=== PATIENT | female | born 1985 | race Caucasian/White ===

== ENCOUNTER 2020-12-01 14:24 | Outpatient (CLI) | payer BC, SELFPAY | END 2020-12-01 14:25 | disposition home or self-care (01) | LOC: ANHAUDIO 14:25 | PROVIDERS: PCP Family Medicine; Visit Provider Otolaryngology | DX: H61.23 Impacted cerumen, bilateral (principal); H90.6 Mixed conductive and sensorineural hearing loss, bilateral | CPT/HCPCS: 92557; 92567 ==

== ENCOUNTER 2023-02-11 08:48 | Emergency (ER) | payer BC, SELFPAY ==
[2023-02-11 08:55] VITALS: BP 117/79; PULSE 90; RESP 16; TEMP 37; O2SAT 100
--- NOTE | 2023-02-11 09:20 | ED.EAR ---
HPI - Ear Problem General Chief complaint: Ear Stated complaint: Ear Time Seen by Provider: 02/11/23 09:20 Source: patient, RN notes reviewed and old records reviewed Mode of arrival: ambulatory Limitations: no limitations History of Present Illness HPI Narrative: 38-year-old female presents to the [facility] with complaints of left ear pain for over a week. 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 Had been seen at another urgent care last week. They were flushing it and she was told to use [facility] Complaint: ear pain (left) and ear discharge (left) Related Data Home Medications Medication Instructions Recorded Confirmed levonorgestrel 21 mcg/24 hours (8 1 device intrauterine ONCE 01/31/23 02/11/23 yrs) 52 mg intrauterine device Inserted 12/25/22 (Mirena) Allergies Allergy/AdvReac Type Severity Reaction Status Date / Time No Known Allergies Allergy Verified 02/11/23 08:57 Review of Systems Review of Systems: All systems reviewed & are unremarkable except as noted in HPI and below Constitutional: Constitutional: Reports no additional constitutional complaints Eyes: Eyes: Reports no additional eye complaints ENT: Reports as per HPI and Reports otalgia (left) Cardiovascular: Cardiovascular: Reports no additional cardiovascular complaints, Denies chest pain and Denies dyspnea Respiratory: Respiratory: Reports no additional respiratory complaints, Denies chest congestion, Denies cough and Denies dyspnea Gastrointestinal: Gastrointestinal: Reports no additional gastrointestinal complaints, Denies abdominal pain, Denies nausea and Denies vomiting Musculoskeletal: Musculoskeletal: Reports no additional musculoskeletal complaints Integumentary/Breasts: Skin/Breast: Reports system reviewed and no additional complaints, except as docu Neurologic: Reports system reviewed and no additional complaints, except as documented Psychiatric: Psychiatric: Reports no additional psychiatric complaints Allergic/Immunologic: Allergic/Immunologic: Reports no additional allergic/immunologic complaints PMFSH Past Medical History Medical History (Updated 02/11/23 @ 09:39 by Rosavla Luke APRN) Allergic rhinitis Depression YOLANDA (generalized anxiety disorder) Hearing loss Melanoma Sensorineural hearing loss, bilateral Vaginal delivery Surgical History Surgical History History of removal of skin mole History of tonsillectomy and adenoidectomy Family History Family History Father Patient's father is in good health, Onset Age: 51 Mother Family history of elevated blood lipids Other Diabetes mellitus Social History Social History Smoking status: Never smoker Second hand tobacco smoke exposure: No Alcohol intake: never Substance use: never Living arrangements: with family Occupation/Education: occupation Gender identity (if verbalized by the patient): Female Sexual Orientation (if Verbalized by the Patient): Straight or Heterosexual Spiritual care concerns: No Comments At the time of my signature, I reviewed and agree with the nursing past medical, surgical, social, and family history. There is no relevant family history pertinent to the patient complaint. Exam Const: General: cooperative, healthy appearing, comfortable, no acute distress, well developed, alert and well nourished Nutritional Appearance: well nourished Orientation/consciousness: patient oriented x3 Limitations: no limitations HENMT: Head: normal to inspection Ears: hearing grossly normal bilaterally, external ears normal, TM normal on the right, mastoids normal, no periauricular adenopathy, Abnormal EAC present EAC tenderness on the left and otic discharge purulent on the left and TM abnormal bulging on the left, erythematous on the left and
== END 2023-02-11 09:40 | disposition home or self-care (01) ==
PROVIDERS: Emergency Provider Nurse Practitioner; PCP Family Medicine
DX: H66.92 Otitis media, unspecified, left ear (principal); H72.92 Unspecified perforation of tympanic membrane, left ear; F32.A Depression, unspecified; F41.1 Generalized anxiety disorder
CPT/HCPCS: 99213; G0463

== ENCOUNTER 2023-11-13 14:19 | Outpatient (CLI) | payer BC, SELFPAY ==
--- NOTE | ~2023-11-13 | MM_ITS ---
EXAMINATION: MM screening miguel BI w paige HISTORY: Screening mammogram TECHNIQUE: Craniocaudal and mediolateral oblique 3-D tomosynthesis images were obtained and synthetic 2-D images were generated. Bilateral rotated lateral CC views. CAD analysis was submitted and interp reted. COMPARISON: Baseline examination. No prior mammogram is available for comparison at this institution. BREAST PARENCHYMAL COMPOSITION: The breasts are heterogeneously dense, which may obscure small masses . FINDINGS: There is no evidence of suspicious mass, calcification, or architectural distortion to sugg est malignancy in either breast. There has been no suspicious interval change. IMPRESSION: 1. No mammographic evidence of malignancy. 2. Recommend routine screening mammography in one year. BI-RADS Category 1: Negative Reviewed, dictated and finalized at location A. URE REPAIRER FABRICATOR
== END 2023-11-13 14:20 | disposition home or self-care (01) ==
LOC: ANHIMG 14:23
PROVIDERS: PCP Family Medicine; Visit Provider Obstetrics & Gynecology
DX: Z12.31 Encounter for screening mammogram for malignant neoplasm of breast (principal)
CPT/HCPCS: 77063; 77067

== ENCOUNTER 2024-11-17 15:24 | Outpatient (CLI) | payer BC, SELFPAY ==
--- NOTE | ~2024-11-17 | MM_ITS ---
EXAMINATION: MM screening miguel BI w paige HISTORY: Screening TECHNIQUE: Craniocaudal and mediolateral oblique 3-D tomosynthesis images were obtained and synthetic 2-D images were generated. CAD analysis was submitted and interpreted. COMPARISON: 11/13/2023 BREAST PARENCHYMAL COMPOSITION: Dense: The breasts are extremely dense, which lowers the sensitivity of mammography. FINDINGS: There is no evidence of suspicious mass, calcification, or architectural distortion to sugg est malignancy in either breast. There has been no suspicious interval change. IMPRESSION: 1. No mammographic evidence of malignancy. 2. Recommend routine screening mammography in one year. BI-RADS Category 1: Negative Reviewed, dictated and finalized at location B. ATORY OPERATOR
== END 2024-11-17 15:25 | disposition home or self-care (01) ==
PROVIDERS: PCP Family Medicine; Visit Provider Obstetrics & Gynecology
DX: Z12.31 Encounter for screening mammogram for malignant neoplasm of breast (principal)
CPT/HCPCS: 77063; 77067

== ENCOUNTER 2025-03-09 15:30 | Outpatient (RCR) | payer BC, SELFPAY ==
--- NOTE | 2025-01-11 16:10 | OPREHPOC ---
Outpatient Therapy Plan of Care This is a Multidisciplinary Plan of Care that may contain components documented by all disciplines (PT, OT, and ST.) PT Problem 1 PT Problem #1 Knowledge Deficit PT Goal 1 Goal / Goal Update 1. Patient will perform independent HEP 2. Patient will verbalize urge suppression strategies Target Visit 2 PT Problem 2 PT Problem #2 Impaired Strength PT Goal 1 Goal / Goal Update 1. Improve pelvic floor strength to 3/5 to reduce incontinence 2. Improve pelvic floor endurance to 10 seconds to reduce incontinence Target Visit 4 PT Problem 3 PT Problem #3 Impaired Functional ADLs PT Goal 1 Goal / Goal Update 1. Patient will report no incontinence for at least 2 weeks 2. Patient will void no more than 8 times a day 3. Patient will be able to hold urge to void at least 30 minutes Target Visit 4
--- NOTE | 2025-01-11 16:10 | PTOPEVAL1 ---
Assessment and note entered by Iram Valentin DPT Evaluation Information Assessment Status Evaluation Diagnosis n81.4 ICD-10 Condition Codes (PT) Weakness R53.1,Stress incontinence N39.3 Subjective Information Pt reports stress incontinence that started about 5 years ago and is worsening. Incontinence occurs a few times a week, usually a few drops at a time. Wears liners at times. Has had to change clothes due to incontinence as well. Has tried using a deion-fit without much success. Voids about 10 times a day and 0 at night. Denies pain. Can hold urge to void a few minutes at a time. BM daily, denies pain or fecal incontinence. Denies history of pelvic pain. Pt has been 1 time, vaginal delivery with episiotomy. No other INTERNATIONAL SALES REPRESENTATIVE or b/b history. Patient goal: not leak urine Return to MD not scheduled. Reported Pain Level Pain Score 0: Self Report Assessment PT Clinical Summary The patient is presenting to skilled therapy with a several year history of stress incontinence and diagnosis of pelvic organ prolapse. She also reports increased urinary frequency and urgency. She presents with significantly impaired pelvic floor strength and inability to contract on exam. These impairments are contributing to her incontinence multiple times a week. She will benefit from skilled therapy to address her impairments in order to reduce incontinence and restore full function. Plan of Care Interventions Manual Therapy,Neuro Re-education,Patient/ Caregiver Education,Therapeutic Activities, Therapeutic Exercise PT Services Indicated Yes Treatment Frequency and 1 time a week for 4 visits Duration These treatments will address the objective and functional deficits as defined above. The patient will be advanced safely and appropriately in order for the patient to progress towards his/her prior level of function. Additional exercises will be introduced and as well as a comprehensive home exercise program upon discharge, if needed, ?to ensure carryover of functional gains achieved in the clinic. This treatment plan has been reviewed and agreement upon by the patient.
--- NOTE | 2025-02-09 16:08 | OPREHPOC ---
Outpatient Therapy Plan of Care This is a Multidisciplinary Plan of Care that may contain components documented by all disciplines (PT, OT, and ST.) PT Problem 1 PT Problem #1 Knowledge Deficit PT Goal 1 Goal / Goal Update 1. Patient will perform independent HEP 2. Patient will verbalize urge suppression strategies Target Visit 2 Progress Met PT Problem 2 PT Problem #2 Impaired Strength PT Goal 1 Goal / Goal Update 1. Improve pelvic floor strength to 3/5 to reduce incontinence 2. Improve pelvic floor endurance to 10 seconds to reduce incontinence update 02/09/15 1. 1/5 2. 1 second Target Visit 4 Progress Partially Met PT Problem 3 PT Problem #3 Impaired Functional ADLs PT Goal 1 Goal / Goal Update 1. Patient will report no incontinence for at least 2 weeks 2. Patient will void no more than 8 times a day 3. Patient will be able to hold urge to void at least 30 minutes update 02/09/25 1. 1 time per week 2. met 3. 20-30 minutes Target Visit 4 Progress Partially Met
--- NOTE | 2025-02-09 16:08 | PTOPPROG ---
Assessment and note entered by Iram Valentin DPT Evaluation Information Assessment Status Progress Diagnosis n81.4 ICD-10 Condition Codes (PT) Weakness R53.1,Stress incontinence N39.3 Subjective Information Pt reports she has been feeling better with therapy. One slight instance of incontinence in the last week and was not enough to change clothes . Has not yet tried anything really strenuous. Voiding 7-8 times a day and 0 at night. Can hold urge to void 20-30 minutes depending on the situation. Has not had to wear liners over the last week. Assessment PT Clinical Summary The patient has made good progress in therapy. She reports decreased frequency/volume of incontinence to only 1 time in the last week and did not have to change clothes or wear liners. She demonstrates improved pelvic floor strength and endurance, but still overall significant weakness. She will benefit from further therapy to improve strength and continue to reduce incontinence to allow for full function. Plan of Care Interventions Manual Therapy,Neuro Re-education,Patient/ Caregiver Education,Therapeutic Activities, Therapeutic Exercise PT Services Indicated Yes Treatment Frequency and 1 visit every other week x 2 visits Duration These treatments will address the objective and functional deficits as defined above. The patient will be advanced safely and appropriately in order for the patient to progress towards his/her prior level of function. Additional exercises will be introduced and as well as a comprehensive home exercise program upon discharge, if needed, ?to ensure carryover of functional gains achieved in the clinic. This treatment plan has been reviewed and agreement upon by the patient.
--- NOTE | 2025-03-09 16:06 | OPREHPOC ---
Outpatient Therapy Plan of Care This is a Multidisciplinary Plan of Care that may contain components documented by all disciplines (PT, OT, and ST.) PT Problem 1 PT Problem #1 Knowledge Deficit PT Goal 1 Goal / Goal Update 1. Patient will perform independent HEP 2. Patient will verbalize urge suppression strategies Target Visit 2 Progress Met PT Problem 2 PT Problem #2 Impaired Strength PT Goal 1 Goal / Goal Update 1. Improve pelvic floor strength to 3/5 to reduce incontinence 2. Improve pelvic floor endurance to 10 seconds to reduce incontinence update 02/09/15 1. 1/5 2. 1 second update 03/09/25 1. no change 2. no change Target Visit 6 Progress Partially Met PT Problem 3 PT Problem #3 Impaired Functional ADLs PT Goal 1 Goal / Goal Update 1. Patient will report no incontinence for at least 2 weeks 2. Patient will void no more than 8 times a day 3. Patient will be able to hold urge to void at least 30 minutes update 02/09/25 1. 1 time per week 2. met 3. 20-30 minutes update 03/09/25 1. met 2. met 3. 20-30 minutes Target Visit 4 Progress Partially Met
--- NOTE | 2025-03-09 16:07 | PTOPDC ---
Assessment and note entered by Iram Valentin DPT Evaluation Information Assessment Status Discharge Diagnosis n81.4 ICD-10 Condition Codes (PT) Weakness R53.1,Stress incontinence N39.3 Subjective Information Pt reports she is trying to keep up with her HEP and is overall feeling good. One episode of incontinence a few days ago during a hard sneeze, other than that did not have one recently. Trying to work on urge suppression techniques and is holding a little bit longer. No recent use of pantiliners. Reported Pain Level Pain Score 0: Self Report Assessment PT Clinical Summary The patient has continued to make good progress in therapy and reports only 1 instance of incontinence in the last 2-3 weeks. Due to her progress, discharge is recommended at this time. She has been educated in a thorough HEP to continue progressing independently, and to follow up with MD and/or PT as needed. Plan of Care PT Services Indicated No
== END 2025-03-10 08:47 | disposition home or self-care (01) ==
LOC: ANHPT 15:30
PROVIDERS: PCP Family Medicine; Visit Provider Obstetrics & Gynecology
DX: N81.89 Other female genital prolapse (principal)
CPT/HCPCS: 97112; 97161; 97530

== ENCOUNTER 2025-06-10 07:21 | Outpatient (CLI) | payer BC, SELFPAY ==
--- NOTE | ~2025-06-10 | CT_ITS ---
EXAMINATION: CT IAC/mastoids BI wo con DATE: 06/10/2025 07:45 INDICATION: Mixed conductive and sensorineural hearing loss TECHNIQUE: Computed tomography (CT) of the temporal bones was performed without intravenous contrast. The dose-length product was 306.88 mGy-cm. COMPARISON: None FINDINGS: RIGHT TEMPORAL BONE: The external auditory canal, ossicles and scutum are normal. The tympanic membrane is not clearly visualized. The mastoid air cells, middle ear cavity including Prussak's space are clear. The oval window, vestibule, cochlea, semicircular canals, internal auditory canal, vestibular aqueduct and course of the facial nerve are normal. The jugular bulb is unremarkable. LEFT TEMPORAL BONE: The external auditory canal, tympanic membrane, ossicles and scutum are normal. There is minimal fluid versus soft tissue density projects space situated between the cephalad aspect of the tympanic membrane, the scutum and the ossicles. Middle ear cavities otherwise clear. Small left mastoid effusion. The oval window, vestibule, cochlea, semicircular canals, internal auditory canal, vestibular aqueduct and course of the facial nerve are normal. The jugular bulb is unremarkable. IMPRESSION: 1. Moderate-sized left mastoid effusion and minimal fluid versus soft tissue density/possible cholesteatoma at Prussak's space of the left middle ear cavity 2. The right tympanic membrane is not visualized, unclear whether absent versus below the resolution of imaging. Otherwise unremarkable assessment of the right temporal bone.. Reviewed, dictated and finalized at location A. IMPRESSION: 1. Moderate-sized left mastoid effusion and minimal fluid versus soft tissue de nsity/possible cholesteatoma at Prussak's space of the left middle ear cavity 2. The right tympanic membrane is not visualized, unclear whether absent versus below the resolution of imaging. Otherwise unremarkable assessment of the righ t temporal bone..
== END 2025-06-10 07:22 | disposition home or self-care (01) ==
PROVIDERS: PCP Otolaryngology Otolaryngology/Facial Plastic Surgery; Visit Provider Otolaryngology Otolaryngology/Facial Plastic Surgery
DX: R94.120 Abnormal auditory function study (principal); H74.8X2 Other specified disorders of left middle ear and mastoid; H90.72 Mixed conductive and sensorineural hearing loss, unilateral, left ear, with unrestricted hearing on the contralateral side; H92.12 Otorrhea, left ear
CPT/HCPCS: 70480

== ENCOUNTER 2025-06-24 07:46 | Outpatient (CLI) | payer BC, SELFPAY | END 2025-06-24 07:47 | disposition home or self-care (01) | LOC: ANHAUDIO 07:47 | PROVIDERS: PCP Otolaryngology Otolaryngology/Facial Plastic Surgery; Visit Provider Otolaryngology Otolaryngology/Facial Plastic Surgery | DX: H90.6 Mixed conductive and sensorineural hearing loss, bilateral (principal); H61.21 Impacted cerumen, right ear | CPT/HCPCS: 92557; 92567 ==

== ENCOUNTER 2025-07-20 07:52 | Outpatient (CLI) | payer BC, SELFPAY ==
--- NOTE | ~2025-07-20 | MR_ITS ---
MR breast BI wo/w con 07/26/2025 10:03 CDT INDICATION: Dense breasts. TECHNIQUE: MRI of the breasts perform using standard protocol pre-and post IV contrast with the following sequences: Axial T2 STIR, axial T1, axial vibrant T1 with fat suppression precontrast and multiphasic postcontrast. 14 cc MultiHance administered intravenously. COMPARISON: Mammogram dated 11/17/2024 FINDINGS: There is extremely fibroglandular content in the breasts. There is moderate background parenchymal enhancement. Right breast: There are no abnormalities on the precontrast sequences. There is moderate background parenchymal enhancement. No enhancing lesions following contrast administration. No areas of enhancement meeting threshold criteria on CAD analysis. No evidence of signal abnormalities in the axillary or internal mammary node distributions. LEFT BREAST: No signal abnormalities on precontrast sequences. There is moderate background parenchymal enhancement. No enhancing lesions following contrast administration. No areas of enhancement meeting threshold criteria on CAD analysis. No evidence of signal abnormalities in the axillary or internal mammary node distributions.] IMPRESSION: 1: Right breast: Negative. No evidence of malignancy. BI-RADS category 1. Recommend annual mammography follow-up. 2: Left breast: Negative. No evidence of malignancy. BI-RADS category 1. Recommend annual mammography follow-up. Follow-up MRI may be useful for supplementing mammographic evaluation as clinically indicated. Reviewed, dictated and finalized at location O. IMPRESSION: 1: Right breast: Negative. No evidence of malignancy. BI-RADS category 1. Recommend annual mammography follow-up. 2: Left breast: Negative. No evidence of malignancy. BI-RADS category 1. Re commend annual mammography follow-up. Follow-up MRI may be useful for supplementing mammographic evaluation as clinic ally indicated.
== END 2025-07-20 07:53 | disposition home or self-care (01) ==
PROVIDERS: PCP Family Medicine; Visit Provider Surgery
DX: R92.343 Mammographic extreme density, bilateral breasts (principal)
CPT/HCPCS: 77049; A9577; C8908